=== PATIENT | female | born 2005 | race African-American/Black ===

== ENCOUNTER 2024-05-04 17:57 | Emergency (ER) | payer SELFPAY ==
[2024-05-04] MEDS ORDERED: Ibuprofen 200 MG TAB ONE (18:28)
[2024-05-04] MEDS ORDERED: Acetaminophen 500 MG TAB ONE (18:28)
== END 2024-05-04 18:49 | disposition home or self-care (01) ==
LOC: CSHERS 17:57 → EDBD 17:57 → CSHERS 18:49
DX: R07.9 Chest pain, unspecified (principal); B34.9 Viral infection, unspecified
CPT/HCPCS: 71045; 93005

== ENCOUNTER 2024-05-16 16:22 | Emergency (ER) | payer SELFPAY ==
[2024-05-16 17:44] LABS: Bilirubin Neg (Negative); Blood, Urine Negative (Negative); Glucose, Urine (Dipstick) Normal (Negative); Ketone, Urine Negative (Negative); Leukocyte Negative (Negative); Nitrite Negative (Negative); Protein, Urine (Dipstick) Negative (Neg-Trace); Specific Gravity, Urine 1.025 (1.005-1.030); Urobilinogen Normal mg/dL (Less than 2)
[2024-05-16 17:49] LABS: Clarity Clear (Clear)
[2024-05-16 17:50] LABS: Pregnancy Test - Urine (BHCG) Negative (Negative); Pregu Control Background? CLEAR/WHITE (CLR/WHITE); Pregu Control Bar Appear? YES (CONTROL BAR); Specific Gravity 1.025 (1.002-1.036)
[2024-05-16 18:02] LABS: Bacteria/HPF 2+ HPF (None Seen); CAUTI Indications for Culture Dysuria,urgency,freq; Mucous/LPF 3+ LPF (<2+); RBC/HPF 0-3 HPF (0-3); WBC/HPF 0-3 HPF (0-3)
[2024-05-16 18:04] LABS: Urine Culture Reflex No No
[2024-05-16 18:57] LABS: HIV (1/2) Antibody/Antigen Non-Reactive (NonReactive); HIV 1/2 INDEX 0.08 S/CO (<1.00)
[2024-05-18 00:13] LABS: Chlamydia by PCR, Vaginal Swab Not Detected (NotDetected); GC by PCR, Vaginal Swab Not Detected (NotDetected)
== END 2024-05-16 20:45 | disposition home or self-care (01) ==
LOC: CSHERS 16:22
DX: N89.8 Other specified noninflammatory disorders of vagina (principal); R30.0 Dysuria; I10 Essential (primary) hypertension; Z79.899 Other long term (current) drug therapy
CPT/HCPCS: 36415; 81001; 81025; 87086; 87389; 87480; 87491; 87510; 87591; 87660; 99283

== ENCOUNTER 2024-05-30 12:34 | Emergency (ER) | payer SELFPAY | END 2024-05-30 15:55 | disposition home or self-care (01) | LOC: CSHERS 12:34 | DX: F41.8 Other specified anxiety disorders (principal); I10 Essential (primary) hypertension; F31.9 Bipolar disorder, unspecified; Z76.0 Encounter for issue of repeat prescription | CPT/HCPCS: 99281 ==